=== PATIENT | male | born 1975 | race Caucasian/White ===

== ENCOUNTER 2018-08-21 16:47 | Emergency (ER) | payer BC ==
[~2018-08-21] VITALS: Ht 177.8 cm; Wt 68.2 kg
[~2018-08-21 16:47] MED LIST: FLEXERIL5 MG PO; MOTRIN 800800 MG/TAB PO; NO HOME MEDICATIONS; NORCO 325 MG-51 TAB PO; NORCO PO
[2018-08-21 16:54] VITALS: BP 124/85; PULSE 75; TEMP 98.5
== END 2018-08-21 19:29 | disposition left against medical advice (07) ==
LOC: COL.ER 16:47
DX: S69.92XA Unspecified injury of left wrist, hand and finger(s), initial encounter (principal); V19.9XXA Pedal cyclist (driver) (passenger) injured in unspecified traffic accident, initial encounter